=== PATIENT | male | born 1985 ===

== ENCOUNTER 2018-09-23 08:34 | Emergency (ER) | payer SELFPAY ==
--- NOTE | 2018-09-23 08:52 | UC ---
Abdominal Pain Male HPI - History of Current Complaint Stated Complaint: LEFT SIDE ABDOMINAL PAIN Time Seen by Provider: 09/23/18 08:43 Discharge - Discharge Plan Referrals: No Primary Care Phys,NOPCP [Primary Care Provider] -
--- NOTE | 2018-09-23 09:00 | UC ---
Abdominal Pain Male HPI - HPI Summary HPI Summary: 33 y/o male presents to the urgent care c/o - History of Current Complaint Stated Complaint: LEFT SIDE ABDOMINAL PAIN Time Seen by Provider: 09/23/18 08:43 Hx Obtained From: Patient - Allergies/Home Medications Allergies/Adverse Reactions: Allergies Allergy/AdvReac Type Severity Reaction Status Date / Time No Known Allergies Allergy Verified 09/23/18 09:04 Home Medications: Home Medications NK [No Home Medications Reported] 09/23/18 [History Confirmed 09/23/18] Abd Pain Male Course/Dx - Differential Dx/Clinical Impression Differential Diagnosis/HQI/PQRI: Appendicitis, Constipation, Diverticulitis, Pancreatitis, Peptic Ulcer Disease, Prostatitis, Ureteral Stone, Urinary Tract Infection Provider Diagnosis: Acute abdominal pain Discharge - Sign-Out/Discharge Documenting (check all that apply): Patient Departure - D/C home All imaging exams completed and their final reports reviewed: No Studies - Discharge Plan Condition: Stable Disposition: HOME-RECOMMEND TO ED Patient Education Materials: Acute Abdominal Pain (DC) Referrals: No Primary Care Phys,NOPCP [Primary Care Provider] - Additional Instructions: I think you need a higher level or care for your presenting symptoms. I highly recommend you to go to the ER for further evaluation and treatment. The risks of not going can be , sepsis, appendicitis, peritonitis, etc. I spoke to the ER attending Dr. Anna Hernandez. They are expecting you. - Billing Disposition and Condition Condition: STABLE Disposition: Home-Recommend to ED
[2018-09-23 09:08] VITALS: BP 137/90
== END 2018-09-23 09:45 | disposition home health service (06) ==
LOC: UCCORT 08:34
DX: R10.9 Unspecified abdominal pain (principal); Z87.442 Personal history of urinary calculi
CPT/HCPCS: 99202; G0463